=== PATIENT | male | born 1950 | race Caucasian/White ===

== ENCOUNTER 2022-04-30 10:45 | Emergency (ER) | payer MEDICARE ==
[~2022-04-30] VITALS: Ht 175.3 cm; Wt 90.9 kg
[2022-04-30] VITALS (7 sets, daily range): BP systolic 145–175; BP diastolic 74–87
[2022-04-30] MEDS ORDERED: KEFLEX500 MG PO (11:46)
[2022-04-30] MEDS ORDERED: BACTRIM DS1 TAB PO (11:46)
[2022-04-30] MEDS ORDERED: ULTRAM50 M1 PO (11:46)
== END 2022-04-30 12:23 | disposition home or self-care (01) ==
LOC: ED 10:45
PROC: 0HDGXZZ Extraction of Left Hand Skin, External Approach (ICD-10-PCS; principal; 2022-04-30)
DX: S60.322A Blister (nonthermal) of left thumb, initial encounter (principal); L02.512 Cutaneous abscess of left hand; X58.XXXA Exposure to other specified factors, initial encounter

== ENCOUNTER 2022-05-01 10:28 | Emergency (ER) | payer MEDICARE ==
[~2022-05-01] VITALS: Ht 175.3 cm; Wt 75.0 kg
[~2022-05-01 10:28] MED LIST: BACTRIM DS1 TAB PO; KEFLEX500 MG PO; ULTRAM50 M1 PO
[2022-05-01 10:34] VITALS: BP 149/86
[2022-05-01 10:45] VITALS: BP 146/87
[2022-05-01 11:00] VITALS: BP 131/75
[2022-05-01 11:15] VITALS: BP 161/79
[2022-05-01 11:29] VITALS: BP 161/79
== END 2022-05-01 11:33 | disposition home or self-care (01) ==
LOC: ED 10:28
DX: Z48.01 Encounter for change or removal of surgical wound dressing (principal)